=== PATIENT | female | born 2000 | race American Indian/Alaskan Native ===

== ENCOUNTER 2019-02-17 16:41 | Emergency (ER) | payer BC ==
[2019-02-17 17:03] VITALS: BP 115/58
--- NOTE | 2019-02-17 17:08 | Event Note ---
ED Screening Note Date of service: 02/17/19 Time: 17:04 ED Screening Note: This is a 18 y.o. F. that presents to the ER with pelvic pain and discharge. Patient states she had an IUD removed 01/2019. Reports positive test last night and this morning. This initial assessment/diagnostic orders/clinical plan/treatment(s) is/are subject to change based on patients health status, clinical progression and re- assessment by fellow clinical providers in the ED. Further treatment and workup at subsequent clinical providers discretion. Patient/guardian urged not to elope from the ED as their condition may be serious if not clinically assessed and managed. Initial orders include: Labs and US
[2019-02-17 17:39] LABS: Bilirubin,Urine NEG (Negative); Blood,Urine NEG (Negative); Color,Urine Yellow (Yellow); Protein,Urine <15 mg/dL mg/dL (Negative); RBC,Urine < 1.0 /HPF (0.0-6.0); Urobilinogen,Urine < 2.0 mg/dL (<2.0); WBC,Urine < 1.0 /HPF (0.0-6.0)
[2019-02-17 17:44] LABS: HCG Qualitative,Urine Negative (Negative)
[2019-02-17 18:15] LABS: Hematocrit 42.8 % (30.3-42.9); Hemoglobin 14.2 gm/dl (10.1-14.3); Mean Corpuscular HGB Conc 33 % (30-34); Mean Corpuscular Volume 84 fl (79-97); Platelet Count 289 K/mm3 (140-440); Red Blood Count 5.09 M/mm3 (3.65-5.03); Red Cell Distribution Width 14.4 % (13.2-15.2)
--- NOTE | 2019-02-17 19:12 | Emergency Department Report ---
ED Female HPI - General Chief complaint: Vaginal Bleeding Stated complaint: SIGNS OF MISCARRIAGE Time Seen by Provider: 02/17/19 17:04 Source: patient Mode of arrival: Ambulatory Limitations: No Limitations - History of Present Illness Initial comments: Is a 18-year-old female with no prior medical history presents to ED complaining of some pelvic cramping that started this morning. Patient states she took a test this morning and it was positive. So she came in to be evaluated. Patient states that she had an IUD placed in December and shortly after that was expressing some vaginal bleeding so the [employer] to get out last month. Patient denies any vaginal bleeding at this time, dysuria, fever, nausea vomiting or any other symptoms MD Complaint: vaginal bleeding - Related Data Previous Rx's Medication Instructions Recorded Last Taken Type Ibuprofen [Motrin] 800 mg PO Q8HR #30 tablet 02/17/19 Unknown Rx Allergies Allergy/AdvReac Type Severity Reaction Status Date / Time latex Allergy Rash Verified 02/17/19 16:46 ED Review of Systems ROS: Stated complaint: SIGNS OF MISCARRIAGE Other details as noted in HPI Comment: All other systems reviewed and negative ED Past Medical Hx - Past Medical History Previous Medical History?: Yes Hx Asthma: Yes - Surgical History Past Surgical History?: Yes Additional Surgical History: Breast reduction - Social History Smoking Status: Never Smoker Substance Use Type: None - Medications Home Medications: Home Medications Medication Instructions Recorded Confirmed Last Taken Type Ibuprofen [Motrin] 800 mg PO Q8HR #30 tablet 02/17/19 Unknown Rx ED Physical Exam - General Limitations: No Limitations General appearance: alert, in no apparent distress - Head Head exam: Present: atraumatic, normocephalic - Eye Eye exam: Present: normal appearance - ENT ENT exam: Present: mucous membranes moist - Neck Neck exam: Present: normal inspection - Respiratory Respiratory exam: Present: normal lung sounds bilaterally. Absent: respiratory distress - Cardiovascular Cardiovascular Exam: Present: regular rate, normal rhythm. Absent: systolic murmur, diastolic murmur, rubs, gallop - GI/Abdominal GI/Abdominal exam: Present: soft, normal bowel sounds. Absent: tenderness, guarding, rebound - Extremities Exam Extremities exam: Present: normal inspection, full ROM - Back Exam Back exam: Present: normal inspection, full ROM - Neurological Exam Neurological exam: Present: alert, oriented X3 - Psychiatric Psychiatric exam: Present: normal affect, normal mood - Skin Skin exam: Present: warm, dry, intact, normal color. Absent: rash ED Course Vital Signs 02/17/19 16:56 Temperature 97.9 F Pulse Rate 67 Respiratory 18 Rate Blood Pressure 115/58 O2 Sat by Pulse 98 Oximetry ED Medical Decision Making - Lab Data Result diagrams: 02/17/19 17:24 - Radiology Data Radiology results: report reviewed, image reviewed OB Ultrasound HISTORY: vaginal bleeding, . TECHNIQUE: Grayscale and color Doppler imaging performed. COMPARISON: None FINDINGS: Transabdominal and endovaginal imaging was performed. Uterus measures 7.7 x 3.6 x 4.1 cm. No intrauterine gestation is identified. Right ovary is normal in size with preserved blood flow. The left ovary is enlarged measuring 4.9 x 2.7 x 2.9 cm. There is normal blood flow. There is also a mildly complex cyst measuring 2.3 cm in maximal dimension, likely hemorrhagic/functional cyst. There is also a simple cyst measuring 1.7 cm. No significant pelvic free fluid. IMPRESSION: 1. No IUP identified. This can be a normal finding early in --correlate with beta hCG level and consider follow-up pelvic ultrasound. 2. Left-sided ovarian cysts, likely functional. Signer Name: Lan Allen MD Signed: 02/17/2019 8:23 PM Workstation Name: [id number] Transcribed By: [email or web address] Dictated By: Lan Allen MD Electronically Authenticated By: Lan Allen MD Signed Date/Time: 02/17/192022 - Medical Decision Making 18-year-old female presents with pelvic cramping most likely due to post-IUD removal. Urinalysis and test negative. all labs wnl Pelvic ultrasound shows no acute findings. Discussed findings with the patient. Discussed the patient follow-up with [employer] doctor. Vital signs are normal patient is in no acute distress. Patient understands instructions as given. Patient states she'll make an ap pointment with her [employer]ICE LEADER to follow-up. Discussed Motrin as an effort cramping, Critical care attestation.: If time is entered above; I have spent that time in minutes in the direct care of this critically ill patient, excluding procedure time. ED Disposition Clinical Impression: Abdominal cramping, Negative test Disposition: DC-01 TO HOME OR SELFCARE Is pt being admited?: No Does the pt Need Aspirin: No Condition: Stable Instructions: Dysmenorrhea (ED), Abdominal Pain (ED) Additional Instructions: Make sure to follow up with the primary care physician as discussed. Take all your medications as you've been prescribed. If you have any worsening symptoms or develop new symptoms please return to ED immediately. Prescriptions: Ibuprofen [Motrin] 800 mg PO Q8HR #30 tablet Forms: Accompanied Note, Work/School Release Form(ED) Time of Disposition: 19:18
--- NOTE | 2019-02-17 20:27 | Ultrasound Report ---
OB Ultrasound HISTORY: vaginal bleeding, . TECHNIQUE: Grayscale and color Doppler imaging performed. COMPARISON: None FINDINGS: Transabdominal and endovaginal imaging was performed. Uterus measures 7.7 x 3.6 x 4.1 cm. No intrauterine gestation is identified. Right ovary is normal in size with preserved blood flow. The left ovary is enlarged measuring 4.9 x 2.7 x 2.9 cm. There is no rmal blood flow. There is also a mildly complex cyst measuring 2.3 cm in maximal dimension, likely he morrhagic/functional cyst. There is also a simple cyst measuring 1.7 cm. No significant pelvic free f luid. IMPRESSION: 1. No IUP identified. This can be a normal finding early in --correlate with beta hCG level and consider follow-up pelvic ultrasound. 2. Left-sided ovarian cysts, likely functional. Signer Name: Lan Allen MD Signed: 02/17/2019 8:23 PM Workstation Name: [id number]
== END 2019-02-17 19:30 | disposition home or self-care (01) ==
LOC: ED 16:41
DX: R10.2 Pelvic and perineal pain (principal); J45.909 Unspecified asthma, uncomplicated; Z79.899 Other long term (current) drug therapy; Z91.040 Latex allergy status; Z32.02 Encounter for pregnancy test, result negative
CPT/HCPCS: 36415; 76801; 76817; 81001; 81025; 84702; 85027; 86900; 86901